=== PATIENT | male | born 1995 | race American Indian/Alaskan Native ===

== ENCOUNTER 2018-09-28 07:12 | Emergency (ER) | payer SELFPAY ==
[2018-09-28 07:20] VITALS: BP 124/65
[2018-09-28] MEDS ORDERED: VALTREX PO ONE (08:39)
--- NOTE | 2018-09-28 08:41 | Emergency Department Report ---
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 Patient states he notices 3 days ago. Patient states lesions are painful and tender to touch. He denies dysuria, per discharge, scrotum or testicular swelling or pain. - Related Data Previous Rx's Medication Instructions Recorded Last Taken Type Acyclovir [Zovirax Tab] 800 mg PO Q8H #21 tab 09/28/18 Unknown Rx Acyclovir/Hydrocortisone [Xerese 1 applicatio TP 5XD #1 cream..g. 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 09/28/18 Unknown Rx 5%-1% Cream] ED Physical Exam - General Limitations: No Limitations - exam: Present: circumcision. Absent: testicular tenderness, scrotal swelling External exam: Present: erythema, lesions (postural field, small, generalized 6- 10 lesions, tender to palpation) ED Course Vital Signs 09/28/18 07:17 Temperature 97.9 F Pulse Rate 79 Respiratory 16 Rate Blood Pressure 124/65 O2 Sat by Pulse 100 Oximetry ED Medical Decision Making - Medical Decision Making 23-year-old male presents with herpetic lesions on penis. ED course: Patient was very agitated, crying, after being told that he had herpetic lesions. Discussed with both mother who is present in the room with the patient and patient HSV information Patient received 1 g of Valtrex Discussed with patient possible STD due to exposure. Discussed with patient treatment Discussed while on treatment patient is to abstain from sex 7-10 days as treatment. Discussed patient partner knowledge and treatment. Discussed the follow-up with the health department for further STD testing. Patient's alert and oriented times 3. Vital signs are normal patient is in no acute discharge. Patient will be discharged home with instructions. Critical care attestation.: If time is entered above; I have spent that time in minutes in the direct care of this critically ill patient, excluding procedure time. 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 Take all your medications as you've been prescribed. If you have any worsening symptoms or develop new symptoms please return to ED immediately. Prescriptions: Acyclovir [Zovirax Tab] 800 mg PO Q8H #21 tab Acyclovir/Hydrocortisone [Xerese 5%-1% Cream] 1 applicatio TP 5XD #1 cream..g. Referrals: CORI GOMEZ MD [Primary Care Provider] - 3-5 Days [facility] [Outside] - 3-[address] [facility] [Outside] - 3-5 Days Forms: Accompanied Note, Work/School Release Form(ED) Time of Disposition: 08:42
== END 2018-09-28 09:29 | disposition home or self-care (01) ==
LOC: ED 07:12
DX: A60.01 Herpesviral infection of penis (principal); F12.10 Cannabis abuse, uncomplicated; Z87.891 Personal history of nicotine dependence
CPT/HCPCS: 99283